=== PATIENT | female | born 1980 | race Caucasian/White ===

== ENCOUNTER → 2016-03-24 | Outpatient (CLI) | payer OTHER ==
[~2016-03-24] MED LIST: /ESOM40CA OR
--- NOTE | 2016-03-25 11:24 | REP ---
Right foot four views: I suspect there is a nondisplaced comminuted interarticular fracture at the base of the fifth digit proximal phalange . No dislocation. There is soft tissue edema dorsally. Mineralization and joint spaces are otherwise unremarkable. No other evidence of fracture or dislocation. Signed by Andrew Kaplan MD 03/24/2016 04:47 P
== END ==
LOC: M ADAMS 16:21
PROVIDERS: ATTEND Physician Assistant Medical
DX: S90.31XA Contusion of right foot, initial encounter (principal); X58.XXXA Exposure to other specified factors, initial encounter; Y92.9 Unspecified place or not applicable

== ENCOUNTER → 2016-11-21 | Outpatient (CLI) | payer OTHER ==
--- NOTE | 2016-11-22 08:36 | REP ---
Clinical: Trauma. Technique: AP, lateral, bilateral oblique views left foot . Findings: The osseous structures and joint spaces are intact and normal. There is no evidence for acute fracture or dislocation. Surrounding soft tissues are unremarkable. No subcutaneous emphysema or radiodense foreign body. Impression: Age appropriate examination . No acute fracture or dislocation. Signed by Gio Keane MD 11/22/2016 08:27 A
== END ==
LOC: M ADAMS 16:12
PROVIDERS: ATTEND Physician Assistant
DX: S90.32XA Contusion of left foot, initial encounter (principal); W18.30XA Fall on same level, unspecified, initial encounter; Y92.009 Unspecified place in unspecified non-institutional (private) residence as the place of occurrence of the external cause

== ENCOUNTER → 2016-12-17 | Outpatient (REF) | payer OTHER ==
[2016-12-19 00:08] LABS: MUMPS VIRUS IgM ANTIBODY <0.80 AU (0.00-0.79)
== END ==
LOC: M SFHCADAM 10:07
PROVIDERS: ATTEND Physician Assistant
DX: Z92.29 Personal history of other drug therapy (principal)

== ENCOUNTER → 2017-10-09 | Outpatient (CLI) | payer OTHER | LOC: M ADAMS 13:05 | DX: R76.11 Nonspecific reaction to tuberculin skin test without active tuberculosis (principal) | CPT/HCPCS: 71046 ==

== ENCOUNTER → 2017-10-10 | Outpatient (REF) | payer OTHER ==
[2017-10-13 00:06] LABS: QUANTIFERON GOLD TB Negative (Negative); TB Test (QFT) Antigen 0.03 IU/mL (.); TB Test (QFT) Mitogen 8.66 IU/mL (.); TB Test (QFT) Nil 0.03 IU/mL (.)
== END ==
LOC: M SFHCADAM 12:10
DX: R76.11 Nonspecific reaction to tuberculin skin test without active tuberculosis (principal)

== ENCOUNTER → 2018-01-18 | Outpatient (CLI) | payer OTHER | LOC: M ADAMS 08:45 | DX: R06.02 Shortness of breath (principal); M25.512 Pain in left shoulder | CPT/HCPCS: 71046 ==

== ENCOUNTER → 2018-02-11 | Outpatient (CLI) | payer OTHER ==
--- NOTE | 2018-02-11 19:28 | REP ---
Clinical: Contusion. Technique: AP and lateral views of the left forearm. Findings: No acute fracture or dislocation. Skeletal structures, joint spaces, and surrounding soft tissues appear normal. Impression: No acute fracture or dislocation. Electronically Signed by Gio Keane MD 02/11/2018 07:19 P
== END ==
LOC: M ADAMS 08:30
PROVIDERS: ATTEND Physician Assistant Medical
DX: S50.12XA Contusion of left forearm, initial encounter (principal); X58.XXXA Exposure to other specified factors, initial encounter; Y92.89 Other specified places as the place of occurrence of the external cause

== ENCOUNTER 2019-04-14 21:17 | Emergency (ER) | payer OTHER ==
[~2019-04-14] VITALS: Ht 157.5 cm; Wt 77.3 kg
[~2019-04-14 21:17] MED LIST changes: -/ESOM40CA OR; +NEXI1CAP3 OR
[2019-04-14] MEDS ORDERED: OMEP-218 (21:41)
[2019-04-14] MEDS ORDERED: VITA50005 (21:41)
[2019-04-14] MEDS ORDERED: TOPI50TA9 (21:41)
[2019-04-14] MEDS ORDERED: AMIT75TA (21:41)
[2019-04-14] MEDS ORDERED: DULO1CAP4 (21:41)
[2019-04-14] MEDS ORDERED: INDO50CA91 PO (22:19)
[2019-04-14] MEDS ORDERED: INDOMETHACIN 25 MG CAP PO ONE (22:30)
[2019-04-14 22:46] VITALS: BP 130/78
--- NOTE | 2019-04-15 08:02 | REP ---
Left wrist series: Four views. History: Injury. Findings: Four views of the left wrist show overall normal mineralization. No fracture or subluxation is seen. There are soft tissue calcifications adjacent to the PA form. These are dystrophic. Impression: No fracture noted. Electronically Signed by Jese Stubbs MD 04/15/2019 07:54 A
== END 2019-04-14 22:47 | disposition home or self-care (01) ==
LOC: M ED 21:17
DX: S63.502A Unspecified sprain of left wrist, initial encounter (principal); W01.0XXA Fall on same level from slipping, tripping and stumbling without subsequent striking against object, initial encounter; Y92.019 Unspecified place in single-family (private) house as the place of occurrence of the external cause; F17.210 Nicotine dependence, cigarettes, uncomplicated; Z79.899 Other long term (current) drug therapy

== ENCOUNTER → 2020-04-25 | Outpatient (REF) | payer OTHER ==
[~2020-04-25] MED LIST changes: +AMIT75TA; +DULO1CAP4; +INDO50CA91 PO; +OMEP-218; +TOPI50TA9; +VITA50005
[2020-04-25 16:30] LABS: HEMATOCRIT 46.4 % (36.0-47.0); MEAN CORPUSCULAR HEMOGLOBIN 30.9 pg (27.0-33.0); MEAN CORPUSCULAR HGB CONC 32.3 g/dl (32.0-36.5); MEAN CORPUSCULAR VOLUME 95.5 fl (80.0-96.0); PLATELET COUNT, AUTOMATED 357 10^3/uL (150-450); RED BLOOD COUNT 4.86 10^6/uL (4.00-5.40)
[2020-04-25 16:45] LABS: ALBUMIN 4.1 GM/DL (3.2-5.2); ALT/SGPT 19 U/L (12-78); BILIRUBIN,TOTAL 0.2 MG/DL (0.2-1.0); BLOOD UREA NITROGEN 13 MG/DL (7-18); CALCIUM LEVEL 9.2 MG/DL (8.5-10.1); CARBON DIOXIDE LEVEL 26 MEQ/L (21-32); CHLORIDE LEVEL 109 MEQ/L (98-107); CREATININE FOR GFR 0.85 MG/DL (0.55-1.30); FREE T4 0.83 NG/DL (0.76-1.46); GLOMERULAR FILTRATION RATE > 60.0 (>58); GLUCOSE, FASTING 79 MG/DL (70-100); POTASSIUM SERUM 4.8 MEQ/L (3.5-5.1); SODIUM LEVEL 140 MEQ/L (136-145); TOTAL PROTEIN 7.3 GM/DL (6.4-8.2)
[2020-04-25 16:49] LABS: TOTAL 25(OH) VITAMIN D 66.3 NG/ML (30.0-100.0); VITAMIN B12 LEVEL 520 PG/ML
[2020-04-25 16:52] LABS: FOLATE 14.7 NG/ML
== END ==
LOC: M SFHCADAM 11:47
PROVIDERS: ATTEND Physician Assistant
DX: E55.9 Vitamin D deficiency, unspecified (principal); G43.009 Migraine without aura, not intractable, without status migrainosus; M79.7 Fibromyalgia; F32.9 Major depressive disorder, single episode, unspecified; E66.9 Obesity, unspecified; G47.33 Obstructive sleep apnea (adult) (pediatric); J45.20 Mild intermittent asthma, uncomplicated; F17.210 Nicotine dependence, cigarettes, uncomplicated

== ENCOUNTER → 2020-05-10 | Outpatient (REF) | payer OTHER | LOC: M SFHCWAGY 10:20 | PROVIDERS: ATTEND Surgery | DX: N61.1 Abscess of the breast and nipple (principal) ==

== ENCOUNTER 2020-08-18 10:44 | Inpatient (IN) | payer OTHER ==
[~2020-08-18] VITALS: Ht 157.5 cm; Wt 81.4 kg
[~2020-08-18 10:44] MED LIST changes: -AMIT75TA; +AMIT75TA PO; +ERGO500029 PO; -OMEP-218; +OMEP-218 PO; -TOPI50TA9; +TOPI50TA9 PO; -VITA50005
[2020-08-18 12:15] LABS: BASO % 0.2 % (0.0-1.0); EOS # 0.3 10^3/uL (0.0-0.5); HEMOGLOBIN 13.7 g/dl (12.0-15.5); LYMPH # 2.8 10^3/uL (1.5-5.0); LYMPH % 21.8 % (24.0-44.0); MEAN CORPUSCULAR HEMOGLOBIN 30.8 pg (27.0-33.0); MEAN CORPUSCULAR HGB CONC 32.6 g/dl (32.0-36.5); MEAN CORPUSCULAR VOLUME 94.4 fl (80.0-96.0); MONO # 0.8 10^3/uL (0.0-0.8); MONO % 6.4 % (2.0-8.0); NEUTROPHILS % 69.3 % (36.0-66.0); PLATELET COUNT, AUTOMATED 271 10^3/uL (150-450); RED BLOOD COUNT 4.45 10^6/uL (4.00-5.40)
[2020-08-18 12:37] LABS: ALBUMIN 3.5 GM/DL (3.2-5.2); ALT/SGPT 16 U/L (12-78); BILIRUBIN,DIRECT < 0.1 MG/DL (0.0-0.2); BILIRUBIN,TOTAL 0.3 MG/DL (0.2-1.0); LIPASE 55 U/L (73-393); TOTAL PROTEIN 6.6 GM/DL (6.4-8.2)
[2020-08-18] MEDS ORDERED: ISOVUE-370 76% 100ML VIAL As Ordered ONE (13:31)
--- NOTE | 2020-08-18 14:16 | REP ---
INDICATION: LLQ pain, r/o diverticulitis. COMPARISON: None. TECHNIQUE: Standard helical technique after the intravenous administration of 100 cc Isovue 370. No oral bowel preparatory contrast was administered prior to the exam FINDINGS: There is cholelithiasis. The gallbladder wall does not abnormally enhance. There is no pericholecystic edema. The liver, spleen, pancreas, adrenal glands, and kidneys are within normal limits. The abdominal aorta and para-aortic regions are within normal limits. There is thickening of the moreno of the descending colon at the descending colon/sigmoid colon junction with surrounding fatty infiltration amidst multiple diverticula. Tiny dots of air density are seen in the adjacent mesenteric adipose. There is a trace amount of free pelvic fluid. The osseous structures are within normal limits. IMPRESSION: 1. Descending colon/sigmoid colon diverticulitis with micro perforation as described above. A phone call was placed to discuss this finding with the patient's ER provider Dr. Church at this time. 2. Cholelithiasis. 3. Other findings as described above. Critical Findings: Sigmoid colon diverticulitis with microperforation The critical information above was relayed directly by me by telephone to KYA LEAHY on 08/18/2020 at 2:11 pm with readback verification. <Electronically signed by Trever Walker > 08/18/20 [id number]
[2020-08-18] MEDS ORDERED: NS 1,000 ML IV ONE ×2 (14:25→15:30)
[2020-08-18] MEDS ORDERED: DULO60CA35 PO (14:29)
[2020-08-18] MEDS ORDERED: PIPERACILLIN/TAZOBACTAM SOD 3.375 GM in D5W MINI-BAG PLUS 50 ML IV ONE (14:30)
[2020-08-18] MEDS ORDERED: ONDANSETRON 4MG/2ML VIAL IV PRN (14:40)
[2020-08-18] MEDS ORDERED: NALOXONE INJ 0.4MG/1ML VIAL (J2310 PER 1MG) IV PRN (14:45)
[2020-08-18] MEDS ORDERED: MORPHINE 4 MG/ML 1ML VIAL/SYRINGE (J2270) IV PRN (14:45)
[2020-08-18] MEDS ORDERED: GLUCAGON INJ 1MG VIAL SC PRN (14:45)
[2020-08-18] MEDS ORDERED: DEXTROSE 50% 50 ML SYRINGE IV PRN (14:45)
[2020-08-18] MEDS ORDERED: PERCOCET 5MG/325MG TAB PO PRN ×2 (14:45)
[2020-08-18] MEDS ORDERED: GLUCOSE 4GM CHEW TABLET PO PRN (14:45)
[2020-08-18] MEDS ORDERED: MORPHINE 4 MG/ML 1ML VIAL/SYRINGE (J2270) IV ONE (15:05)
[2020-08-18 15:50] LABS: RSV AMPLIFICATION NEGATIVE (NEGATIVE)
[2020-08-18] MEDS: KETOROLAC 30 MG/ML 1ML VIAL IV SCH ×2 (16:54→21:01)
[2020-08-18] MEDS: metroNIDAZOLE 500 MG in IV 1 EA IV SCH ×2 (16:54→23:30)
[2020-08-18 17:00] VITALS: BP 128/65
[2020-08-18] MEDS: CIPROFLOXACIN 400 MG in IV 1 EA IV SCH (17:52)
[2020-08-18] MEDS: KCL 10MEQ IN D5/0.45NS 1000ML 1,000 ML IV SCH (17:52)
[2020-08-18 22:00] VITALS: BP 113/74
--- NOTE | 2020-08-18 23:49 | HPE ---
HISTORY AND PHYSICAL DATE OF ADMISSION: 08/18/2020 CHIEF COMPLAINT: Left lower quadrant abdominal pain for the past 2-1/2 days. HISTORY OF PRESENT ILLNESS: A 40-year-old female with a history of asthma, fibromyalgia, migraines, gastroesophageal reflux disease, obstructive sleep apnea, obesity; BMI 32.8, who presents to the Emergency Room with 2-1/2 day history of left lower quadrant pain described as sharp and constant, sometimes radiating to the back, without nausea, vomiting, fever or chills, slightly better when she lays down on her left side with a rolled sheet and presses on it slightly. Patient denies taking any nonsteroidal anti-inflammatories, acetaminophen or any other pain medications at home. She decided to present to the Emergency Room for further evaluation. She otherwise denies any decrease in oral intake, weight gain, weight loss, diarrhea, constipation, bright red blood per rectum, melena, dark tarry stools or other review of systems negative. PAST MEDICAL HISTORY: Migraines, asthma, reflux, fibromyalgia, obstructive sleep apnea; not on CPAP, noncompliant, cholelithiasis. PAST SURGICAL HISTORY: D and C, sinus surgery, left breast cyst biopsy, left finger surgery secondary to traumatic injury of her pinky fifth digit. SOCIAL HISTORY: Smokes cigarettes 1-1/2 packs to 3/4 pack a day since the age of 11. Alcohol use one cooler every week. Patient works at the [employer]. No healthcare proxy. Full code. FAMILY HISTORY: Father in his 70's; unknown medical problems. Mother also in her 70's; diabetes, hypertension, hypercholesterolemia and diverticulitis. REVIEW OF SYSTEMS: A 10-point system negative aside from positive findings on HPI. PHYSICAL EXAMINATION: VITAL SIGNS: Temperature 97.6, pulse 70, respiratory rate 17, blood pressure 128/65, 100% on room air. GENERAL: Patient is awake, alert and oriented to person, place and time. Answering questions appropriately. No respiratory distress. HEENT: No pallor, icterus, jaundice. No jugular venous distention. Moist mucous membranes. No cervical lymphadenopathy. LUNGS: Clear to auscultation. No wheezing, rales or rhonchi. HEART: S1, S2, sinus rhythm. No murmurs, rubs or gallops. ABDOMEN: Soft, obese, tender in the left lower quadrant. No rebound or guarding. Positive bowel sounds x4 quadrants. No hepatosplenomegaly. No CVA tenderness. EXTREMITIES: No cyanosis, clubbing or any pitting edema. LABORATORY DATA: White count 13, hemoglobin 13, hematocrit 42, platelets 271,000. Lactic acid 0.6. Total bilirubin 0.3, direct bilirubin less than 0.1. AST 9, ALT 16, alkaline phosphatase 74, total protein 6.6, albumin 3.5, lipase 55. Beta-HCG less than 5. Sodium 139, potassium 3.9, chloride 106, bicarb 20, BUN 8, creatinine 0.6. Ionized calcium 5.1. Glucose 90. Urinalysis negative. MICROBIOLOGY: Two sets of blood cultures pending. CT abdomen and pelvis revealed sigmoid diverticulitis with microperforation as described, cholelithiasis. ASSESSMENT: A 40-year-old female with 2-1/2 day history of left lower quadrant abdominal pain, found to have acute descending colon and sigmoid colon diverticulitis with microperforation, admitted as an inpatient for two midnights for the following acute issues: 1. Acute descending colon and sigmoid colon diverticulitis with microperforation. 2. History of migraines. 3. History of asthma. 4. Fibromyalgia. 5. Obstructive sleep apnea. 6. Gastroesophageal reflux disease. 7. Active tobacco abuse. 8. Social alcohol use. 9. Medical noncompliance with her CPAP. PLAN: Patient will be admitted as an inpatient for two midnights. Supportive care with I.V. fluids, n.p.o. status, I.V. Cipro and I.V. Flagyl. She received one dose of I.V. Zosyn in the Emergency Room, Toradol 30 mg I.V. every 6 hours for anti-inflammatory effect, and hypoglycemic protocol with D5 half normal saline at 100 an hour after 2 liters I.V. saline bolus. For pain control, Percocet 1-2 tablets as needed, morphine for breakthrough pain, Narcan for any suspicion of respiratory acidosis. Due to risk of respiratory acidosis with hypercarbia and hypercapnic respiratory failure in light of history of obstructive sleep apnea and noncompliance, would put on YE protocol. Continue his pulse ox q.h.s. and Narcan as needed to reverse any effect of Percocet or morphine. DVT prophylaxis with compression stockings. Will advance to clear or a full liquid diet in the morning if patient's pain is improved. No signs of fevers or sepsis. MTDD
[2020-08-19] MEDS: KCL 10MEQ IN D5/0.45NS 1000ML 1,000 ML IV SCH ×2 (04:56→11:48)
[2020-08-19] MEDS: KETOROLAC 30 MG/ML 1ML VIAL IV SCH ×2 (04:57→09:02)
[2020-08-19] MEDS: CIPROFLOXACIN 400 MG in IV 1 EA IV SCH (05:00)
[2020-08-19 06:00] VITALS: BP 121/70
[2020-08-19 06:26] LABS: BASO % 0.4 % (0.0-1.0); EOS # 0.3 10^3/uL (0.0-0.5); EOS % 3.2 % (0.0-3.0); HEMATOCRIT 34.2 % (36.0-47.0); LYMPH # 2.2 10^3/uL (1.5-5.0); MEAN CORPUSCULAR HEMOGLOBIN 31.1 pg (27.0-33.0); MEAN CORPUSCULAR HGB CONC 32.7 g/dl (32.0-36.5); MONO # 0.6 10^3/uL (0.0-0.8); MONO % 7.6 % (2.0-8.0); NEUTROPHILS % 61.4 % (36.0-66.0); PLATELET COUNT, AUTOMATED 216 10^3/uL (150-450); WHITE BLOOD COUNT 8.2 10^3/uL (4.0-10.0)
[2020-08-19 06:28] LABS: HEMOGLOBIN 11.2 g/dl (12.0-15.5)
[2020-08-19 06:48] LABS: BLOOD UREA NITROGEN 7 MG/DL (7-18); CALCIUM LEVEL 7.4 MG/DL (8.5-10.1); CARBON DIOXIDE LEVEL 23 MEQ/L (21-32); CHLORIDE LEVEL 111 MEQ/L (98-107); CREATININE FOR GFR 0.66 MG/DL (0.55-1.30); GLOMERULAR FILTRATION RATE > 60.0 (>58); GLUCOSE, FASTING 108 MG/DL (70-100); POTASSIUM SERUM 3.5 MEQ/L (3.5-5.1); SODIUM LEVEL 138 MEQ/L (136-145)
[2020-08-19] MEDS ORDERED: BACI1CAP PO ×2 (07:20→13:16)
[2020-08-19] MEDS ORDERED: FLAG500T PO ×2 (07:20→13:16)
[2020-08-19] MEDS ORDERED: CIPR-249 PO ×2 (07:20→13:16)
--- NOTE | 2020-08-19 07:42 | IPN ---
PROGRESS NOTE DATE: 08/19/2020 SUBJECTIVE: The patient is seen and examined at the bedside. Chart has been reviewed. She denies nausea, vomiting, fever, or chills overnight. Only very slight discomfort at the left lower quadrant 1/10 on a pain scale. No diarrhea or constipation. No complaints of chills. OBJECTIVE: VITAL SIGNS: Temperature 97.9, pulse 72, respiratory rate 20, blood pressure 121/70, 96% on room air. GENERAL: The patient is awake, alert, and oriented person, place, and time. Answering questions comfortably in no distress. HEENT: Dry mucous membranes. LUNGS: Clear to auscultation. No wheezing, rales, or rhonchi. HEART: S1, S2. Sinus rhythm. ABDOMEN: Soft. Tender in the left lower quadrant. No rebound or guarding. Positive bowel sounds. EXTREMITIES: No cyanosis, clubbing, or pitting edema. DIAGNOSTIC STUDIES: Laboratory data, microbiology, and imaging studies have been reviewed. ASSESSMENT: This is a 40-year-old female with a history of gastroesophageal reflux disease (GERD), migraines, active smoker, fibromyalgia, obstructive sleep apnea noncompliant with CPAP, cholelithiasis admitted on 08/18 due to descending colon sigmoid diverticulitis with left lower quadrant abdominal pain for the past two and a half days. Active issues: 1. Acute descending and sigmoid colon diverticulitis with microperforation. The patient received one dose of IV Zosyn yesterday on 08/18/2020, in the emergency room and currently n.p.o. status with IV fluids overnight, hypoglycemic protocol, IV Cipro and Flagyl currently day #2. The patient was kept on Toradol 30 mg IV q. 6 hourly for anti-inflammatory affect with IV fluids to prevent acute kidney injury and renal failure and had done well overnight. Percocet as needed one to two tablets and morphine for breakthrough pain as needed. Narcan for possible respiratory acidosis due to risk of hypercarbic and hypercapnic respiratory failure from obstructive sleep apnea for which he is noncompliant. The patient will be advanced on a full liquid diet today as tolerated to a solid diet. If she remains stable without abdominal pain, fever, chills, or signs of worsening abdominal distention, the patient may either be discharged home later today or in the morning for further observation. She is to complete a total of seven days of antibiotics five more days as outpatient if she remains in the hospital today and discharged in the morning. 2. History of migraines. No acute symptoms. 3. History of asthma, clear lungs currently at the bedside. 4. Fibromyalgia chronic. No acute pain issues. 5. Obstructive sleep apnea, stable. Keep on continuous pulse ox at night due to opiate use for pain control. 6. Gastroesophageal reflux disease on IV Protonix. 7. Active tobacco use. Tobacco cessation counseling has been provided, as well as nicotine patch. 8. Medical noncompliance with her CPAP for her obstructive sleep apnea, chronic. DISPOSITION: May discharge later today if tolerates her diet without pain versus tomorrow if she has worsening abdominal distention and pain with food. MTDD
[2020-08-19] MEDS ORDERED: PANTOPRAZOLE 40MG VIAL (C9113 PER 1) IV SCH (09:00)
[2020-08-19] MEDS: metroNIDAZOLE 500 MG in IV 1 EA IV SCH (09:02)
[2020-08-19] MEDS ORDERED: GI COCKTAIL 50ML BTL(HYOSCYAMINE/MAALOX/LIDOCAINE VISCOUS)(1:3:1) PO PRN (12:50)
[2020-08-19] MEDS ORDERED: PANTOPRAZOLE 40MG TAB (PROTONIX) PO ONE (12:50)
[2020-08-19] MEDS ORDERED: PERC5TAB12 PO ×2 (12:51→13:16)
[2020-08-19] MEDS ORDERED: DIFL150T PO (13:05)
[2020-08-19] MEDS ORDERED: 3 DA2CRE PV (13:05)
[2020-08-19] MEDS ORDERED: SUCRALFATE 1 GM TAB PO ONE (14:00)
[2020-08-19] MEDS ORDERED: GI COCKTAIL 50ML BTL(HYOSCYAMINE/MAALOX/LIDOCAINE VISCOUS)(1:3:1) PO ONE (14:00)
--- NOTE | 2020-08-20 14:32 | DSES ---
DISCHARGE SUMMARY DATE OF ADMISSION: 08/18/2020 DATE OF DISCHARGE: 08/19/2020 PRIMARY DISCHARGE DIAGNOSES: 1. Acute descending colon. 2. Sigmoid colon diverticulitis with microperforation. 3. History of migraines. 4. History of asthma. 5. Chronic fibromyalgia. 6. Obstructive sleep apnea, not on continuous positive airway pressure (CPAP), noncompliant. 7. Gastroesophageal reflux disease. 8. Active tobacco abuse. 9. Medical noncompliance with continuous positive airway pressure (CPAP) for obstructive sleep apnea. DISCHARGE MEDICATIONS: - ciprofloxacin 500 mg by mouth twice a day - Flagyl 500 mg by mouth every 8 hours - Bacid one tablet in the morning and at bedtime - clotrimazole topically as needed - fluconazole 150 mg once as needed for yeast infection - Percocet one tablet three times a day as needed for pain - amitriptyline 75 mg daily at bedtime - duloxetine 60 mg daily - vitamin D 50,000 units weekly - omeprazole 20 mg daily - Topamax 50 mg twice a day DISCHARGE INSTRUCTIONS: Primary care physician appointment within five days of discharge. HOSPITAL COURSE: This is a 50-year-old female who presented to the emergency room with 2 to 2-1/2 day history of left lower quadrant abdominal pain described as sharp and constant, radiating to the back at times without nausea, vomiting, fever, chills, dysuria, urgency or frequency, worse when she lays down on the right side, better when she lays down on the left with a rolled sheet and when she presses on it slightly. Patient denies any nonsteroidal antiinflammatory (NSAID) use or upper gastrointestinal (GI) bleed in the past, presents to the emergency room and found to have descending colon, sigmoid colon diverticulitis with microperforation. She was given one dose of intravenous (IV) Zosyn in the emergency room (ER). She was afebrile and vital signs were stable with blood pressure 128/65, kept nothing by mouth (NPO), IV fluid, antiemetics, IV Toradol around the clock and Percocet 1-2 tablets as needed with morphine for breakthrough pain. Patient did well overnight and was advanced on a liquid diet for breakfast and a solid regular diet for lunch, which she tolerated well without any abdominal discomfort. Blood cultures were negative. Blood work improved, with white count of 13 on admission, discharge of 8.2. She had no other acute issues and was discharged in stable condition. PHYSICAL EXAMINATION ON DISCHARGE: VITAL SIGNS: Temperature 97.9, pulse 72, respiratory rate 20, blood pressure 121/70, 96% on room air. GENERAL: No distress. LUNGS: Clear to auscultation. HEART: S1, S2. Sinus rhythm. ABDOMEN: Soft. Slightly tender left lower quadrant on deep palpation. Positive bowel sounds all four quadrants. No rebound or guarding. EXTREMITIES: No cyanosis, clubbing or pitting edema. LABORATORY DATA: Laboratory data, microbiology, imaging studies: Please see the chart. TIME SPENT ON DISCHARGE: 30 minutes. MTDD
== END 2020-08-19 14:00 | disposition home or self-care (01) | DRG 244 ==
LOC: M ED 10:44 → M ED INP 14:39 → ENRESERV 16:25 → M MS5PR 16:50
PROVIDERS: ADMIT General Practice; ATTEND General Practice
DX: K57.20 Diverticulitis of large intestine with perforation and abscess without bleeding (principal); E66.9 Obesity, unspecified; J45.909 Unspecified asthma, uncomplicated; M79.7 Fibromyalgia; G43.909 Migraine, unspecified, not intractable, without status migrainosus; K21.9 Gastro-esophageal reflux disease without esophagitis; G47.33 Obstructive sleep apnea (adult) (pediatric); Z68.32 Body mass index [BMI] 32.0-32.9, adult; Z91.19 Patient's noncompliance with other medical treatment and regimen; F17.210 Nicotine dependence, cigarettes, uncomplicated; Z79.899 Other long term (current) drug therapy; Z88.2 Allergy status to sulfonamides

== ENCOUNTER → 2020-08-25 | Outpatient (CLI) | payer OTHER ==
[~2020-08-25] MED LIST changes: +3 DA2CRE PV; +BACI1CAP PO; +CIPR-249 PO; +DIFL150T PO; +DULO60CA35 PO; +FLAG500T PO; +PERC5TAB12 PO
--- NOTE | 2020-08-25 10:27 | REP ---
INDICATION: N61.1 LT BREAST ABSCESS. Abscess removed from the left breast April of 2020. Small defect in the overlying skin but no drainage or other breast symptoms. COMPARISON: Mammography dated August 01, 2009. TECHNIQUE: Routine views of each breast are obtained. 3D tomography is performed. Magnified focal spot-compression CC and MLO spot views of the subareolar regions are acquired bilaterally. Targeted bilateral subareolar sonography is performed. FINDINGS: The breast parenchyma is heterogeneously dense in a pattern which may inhibit the sensitivity mammography. There are widely dispersed microcalcifications throughout the dense breast parenchyma suggesting sclerosing adenosis. This is bilateral and symmetric. Also noted is bilateral dilated duct pattern in the subareolar region of each breast. This is slightly more prominent on the left than the right but is essentially symmetric. No mass or adenopathy is appreciated. No evidence of architectural distortion is seen. 3D tomography shows no additional findings. The Volpara volumetric breast density pattern is C. Targeted bilateral subareolar sonography: At 10 o'clock in the right breast there is a 1.4 x 1.5 by 0.8 cm simple cyst. Heterogeneous fibroglandular background echotexture is seen. Bilateral retroareolar ductal dilation is observed, right more prominent than left by ultrasound. Ductal dilation up to 1 cm is seen in the right retroareolar region and up to 0.5 cm in the left. There is evidence of inspissated mobile proteinaceous fluid within the dilated ducts. No mass lesion is observed.. IMPRESSION: BIRADS/ACR category 2 benign bilateral mammographic and sonographic findings. Dilated retroareolar ducts.. This patient's Tyrer-Cuzick lifetime breast cancer risk assessment score is 10.1%. This mammogram was interpreted with the aid of an FDA-approved computer-aided detection system. The patient states she had a clinical breast exam in April of 2020. The patient letter being requested is M2 dense. RECOMMENDATION: Repeat screening mammography recommended 1 year (for women over 40). <Electronically signed by Silver Stubbs > 08/25/20 [id number]
== END ==
LOC: M WHC 07:54
PROVIDERS: ATTEND Surgery
DX: N61.1 Abscess of the breast and nipple (principal)
CPT/HCPCS: 76642; 77066; G0279

== ENCOUNTER 2021-09-19 15:32 | Emergency (ER) | payer OTHER ==
[~2021-09-19] VITALS: Ht 157.5 cm; Wt 80.5 kg
[2021-09-19 15:32] VITALS: BP 139/82
[~2021-09-19 15:32] MED LIST changes: +OMEP-173 PO; -OMEP-218 PO
[2021-09-19] MEDS ORDERED: SUMA25TA3 (15:41)
[2021-09-19 17:10] LABS: BASO % 0.4 % (0.0-1.0); EOS # 0.3 10^3/uL (0.0-0.5); EOS % 2.9 % (0.0-3.0); HEMATOCRIT 40.3 % (36.0-47.0); HEMOGLOBIN 13.2 g/dl (12.0-15.5); LYMPH # 3.6 10^3/uL (1.5-5.0); LYMPH % 35.6 % (24.0-44.0); MEAN CORPUSCULAR HEMOGLOBIN 30.3 pg (27.0-33.0); MEAN CORPUSCULAR HGB CONC 32.8 g/dl (32.0-36.5); MEAN CORPUSCULAR VOLUME 92.4 fl (80.0-96.0); MONO # 0.5 10^3/uL (0.0-0.8); MONO % 4.9 % (2.0-8.0); NEUTROPHILS # 5.7 10^3/uL (1.5-8.5); NEUTROPHILS % 55.8 % (36.0-66.0); PLATELET COUNT, AUTOMATED 316 10^3/uL (150-450); RED BLOOD COUNT 4.36 10^6/uL (4.00-5.40); WHITE BLOOD COUNT 10.2 10^3/uL (4.0-10.0)
[2021-09-19 17:36] LABS: ALT/SGPT 16 U/L (12-78); BILIRUBIN,DIRECT < 0.1 MG/DL (0.0-0.2); BILIRUBIN,TOTAL 0.3 MG/DL (0.2-1.0); BLOOD UREA NITROGEN 7 MG/DL (7-18); CALCIUM LEVEL 9.2 MG/DL (8.5-10.1); CARBON DIOXIDE LEVEL 22 MEQ/L (21-32); CHLORIDE LEVEL 113 MEQ/L (98-107); CREATININE FOR GFR 0.76 MG/DL (0.55-1.30); GLOMERULAR FILTRATION RATE > 60.0 (>58); GLUCOSE, FASTING 83 MG/DL (70-100); LIPASE 79 U/L (73-393); POTASSIUM SERUM 4.3 MEQ/L (3.5-5.1); SODIUM LEVEL 141 MEQ/L (136-145); TOTAL PROTEIN 6.9 GM/DL (6.4-8.2)
[2021-09-19] MEDS ORDERED: NS 1,000 ML IV ONE (17:45)
[2021-09-19] MEDS ORDERED: KETOROLAC 30 MG/ML 1ML VIAL IV ONE (17:45)
[2021-09-19] MEDS ORDERED: ONDANSETRON 4MG 2ML VIAL IV ONE (17:45)
[2021-09-19] MEDS ORDERED: ISOVUE-370 76% 100ML VIAL As Ordered ONE (17:58)
[2021-09-19] MEDS ORDERED: CYCL-707 PO (19:32)
[2021-09-19] MEDS ORDERED: NAPR-837 PO (19:32)
== END 2021-09-19 19:47 | disposition home or self-care (01) ==
LOC: M ED 15:32
DX: R10.9 Unspecified abdominal pain (principal); R11.0 Nausea; J45.909 Unspecified asthma, uncomplicated; F32.A Depression, unspecified; G43.909 Migraine, unspecified, not intractable, without status migrainosus; G47.33 Obstructive sleep apnea (adult) (pediatric); M79.7 Fibromyalgia; Z87.19 Personal history of other diseases of the digestive system; Z88.2 Allergy status to sulfonamides; Z79.899 Other long term (current) drug therapy; F17.210 Nicotine dependence, cigarettes, uncomplicated
CPT/HCPCS: 74177; 80048; 80076; 81001; 83690; 85025; 96361; 96374; 96375; 99283; J1885; J2405; Q9967

== ENCOUNTER → 2021-10-25 | Outpatient (CLI) | payer OTHER ==
[~2021-10-25] MED LIST changes: +CYCL-707 PO; +IBUP-1857 PO; +NAPR-837 PO; +SUMA25TA3 PO; +[UNRECOGNIZED DRUG - OTHER] PO; +cbd gummies PO
== END ==
LOC: M LABSMTC 09:55
PROVIDERS: ATTEND Anesthesiology
DX: Z01.818 Encounter for other preprocedural examination (principal); Z11.52 Encounter for screening for COVID-19

== ENCOUNTER 2021-10-30 06:07 | Day surgery (SDC) | payer OTHER ==
[~2021-10-30] VITALS: Ht 157.5 cm; Wt 81.6 kg
[~2021-10-30 06:07] MED LIST changes: +ceFAZolin SOD 2 GM in IV 1 EA IV ONE
[2021-10-30] MEDS ORDERED: BUPIVACAINE/EPIN 0.25% 30 ML VIAL As Ordered ONE (07:09)
[2021-10-30] MEDS ORDERED: ONDANSETRON 4MG 2ML VIAL As Ordered ONE (08:00)
[2021-10-30] MEDS ORDERED: MIDAZOLAM INJ 2MG/2ML VIAL (J2250 PER 1MG) As Ordered ONE (08:00)
[2021-10-30] MEDS ORDERED: fentaNYL 100 MCG/2 ML INJECTION As Ordered ONE (08:00)
[2021-10-30] MEDS ORDERED: dexameTHASONE 4 MG/ML 1ML VIAL (J1100 PER 1MG) As Ordered ONE (08:00)
[2021-10-30] MEDS ORDERED: ROCURONIUM BROMIDE 50 MG/5 ML VIAL As Ordered ONE (08:00)
[2021-10-30] MEDS ORDERED: ACETAMINOPHEN 1000MG 100ML IV BTL (OFIRMEV) (J0131 PER 10MG) As Ordered ONE (08:00)
[2021-10-30] MEDS ORDERED: SUGAMMADEX SODIUM 500 MG/5 ML VIAL (BRIDION) As Ordered ONE (08:00)
[2021-10-30] MEDS ORDERED: LIDOCAINE 2% 100MG/5ML SDV (FOR ANES.) As Ordered ONE (08:00)
[2021-10-30] MEDS ORDERED: propofoL 200 MG/20 ML VIAL As Ordered ONE (08:00)
[2021-10-30] MEDS ORDERED: PHENYLephrine 500MCG 5ML (100MCG/ML) SYRINGE As Ordered ONE (08:01)
[2021-10-30] MEDS ORDERED: KETOROLAC 60MG 2ML VIAL As Ordered ONE (08:11)
[2021-10-30] MEDS ORDERED: MORPHINE 2 MG/ML 1ML VIAL IV PRN (08:15)
[2021-10-30] MEDS ORDERED: ONDANSETRON 4MG 2ML VIAL IV PRN (08:15)
[2021-10-30] MEDS ORDERED: fentaNYL 100 MCG/2 ML INJECTION IV PRN (08:15)
[2021-10-30] MEDS ORDERED: LR 1,000 ML IV SCH (08:15)
[2021-10-30] MEDS ORDERED: NS 1,000 ML IV SCH (08:40)
[2021-10-30] MEDS ORDERED: NORCO, ANEXSIA 5/325MG TABLET (HYDROcodone/ACETAMINOPHEN) PO PRN ×2 (08:40)
[2021-10-30] MEDS: oxyCODONE 5MG TAB PO PRN ×2 (08:43→09:12)
[2021-10-30 09:49] VITALS: BP 113/66
== END 2021-10-30 09:52 | disposition home or self-care (01) ==
LOC: M SDC 06:07
PROVIDERS: ATTEND Surgery
DX: K80.10 Calculus of gallbladder with chronic cholecystitis without obstruction (principal); K57.92 Diverticulitis of intestine, part unspecified, without perforation or abscess without bleeding; K21.9 Gastro-esophageal reflux disease without esophagitis; G47.33 Obstructive sleep apnea (adult) (pediatric); M79.7 Fibromyalgia; F32.A Depression, unspecified; J45.909 Unspecified asthma, uncomplicated; Z88.2 Allergy status to sulfonamides; Z79.899 Other long term (current) drug therapy; F17.210 Nicotine dependence, cigarettes, uncomplicated
CPT/HCPCS: 47562; 88304; J0131; J0690; J1100; J1885; J2250; J2270; J2370; J2405; J3010

== ENCOUNTER → 2022-10-18 | Outpatient (CLI) | payer OTHER ==
[~2022-10-18] MED LIST changes: +TOPI-254 PO; -TOPI50TA9 PO; -ceFAZolin SOD 2 GM in IV 1 EA IV ONE
== END ==
LOC: M ADAMS 13:13
PROVIDERS: ATTEND Physician Assistant
DX: R07.9 Chest pain, unspecified (principal)

== ENCOUNTER → 2022-10-18 | Outpatient (REF) | payer OTHER ==
[2022-10-18 16:24] LABS: BASO % 0.5 % (0.0-1.0); EOS # 0.3 10^3/uL (0.0-0.5); EOS % 2.9 % (0.0-3.0); HEMATOCRIT 38.9 % (36.0-47.0); HEMOGLOBIN 12.9 g/dl (12.0-15.5); LYMPH # 3.3 10^3/uL (1.5-5.0); LYMPH % 37.8 % (24.0-44.0); MEAN CORPUSCULAR HEMOGLOBIN 31.1 pg (27.0-33.0); MEAN CORPUSCULAR HGB CONC 33.2 g/dl (32.0-36.5); MEAN CORPUSCULAR VOLUME 93.7 fl (80.0-96.0); MONO # 0.6 10^3/uL (0.0-0.8); MONO % 6.2 % (2.0-8.0); NEUTROPHILS # 4.6 10^3/uL (1.5-8.5); NEUTROPHILS % 52.4 % (36.0-66.0); PLATELET COUNT, AUTOMATED 281 10^3/uL (150-450); RED BLOOD COUNT 4.15 10^6/uL (4.00-5.40); WHITE BLOOD COUNT 8.8 10^3/uL (4.0-10.0)
[2022-10-18 16:46] LABS: LIPASE 29 U/L (12-53)
[2022-10-18 16:47] LABS: AMYLASE 49 U/L (30-118)
[2022-10-18 16:48] LABS: ALBUMIN 3.8 G/DL (3.2-5.2); ALKALINE PHOSPHATASE 91 U/L (46-116); ALT/SGPT 23 U/L (7.0-40); AST/SGOT 19 U/L (<34); BILIRUBIN,TOTAL 0.3 MG/DL (0.3-1.2); BLOOD UREA NITROGEN 12 MG/DL (9-23); CALCIUM LEVEL 9.5 MG/DL (8.5-10.1); CARBON DIOXIDE LEVEL 24 MMOL/L (20-31); CHLORIDE LEVEL 108 MMOL/L (98-107); CHOLESTEROL LEVEL 198 MG/DL (<200); CHOLESTEROL RISK RATIO 5.45 (<5); CREATININE FOR GFR 0.79 MG/DL (0.55-1.30); GLOMERULAR FILTRATION RATE > 60.0 (>58); GLUCOSE, FASTING 126 MG/DL (60-100); HDL CHOLESTEROL 36.3 MG/DL (>40); LDL CHOLESTEROL 136.9 MG/DL (<100); NON-HDL-C 161.7 MG/DL; SODIUM LEVEL 141 MMOL/L (136-145); TOTAL PROTEIN 6.6 G/DL (5.7-8.2); TRIGLYCERIDES LEVEL 124 MG/DL (<150)
[2022-10-18 16:50] LABS: FREE T4 1.14 NG/DL (0.89-1.76)
[2022-10-18 16:57] LABS: HEMOGLOBIN A1c 4.9 % (4.0-6.0)
== END ==
LOC: M SFHCADAM 12:13
PROVIDERS: ATTEND Physician Assistant
DX: R07.9 Chest pain, unspecified (principal); F17.210 Nicotine dependence, cigarettes, uncomplicated; Z13.220 Encounter for screening for lipoid disorders; Z13.1 Encounter for screening for diabetes mellitus

== ENCOUNTER 2023-05-12 11:13 | Emergency (ER) | payer OTHER ==
[~2023-05-12] VITALS: Ht 157.5 cm; Wt 87.4 kg
[~2023-05-12 11:13] MED LIST changes: +TOPI-21 PO; -TOPI-254 PO
[2023-05-12] MEDS: LIDOCAINE 5% (LIDODERM) PATCH TD ONE (14:10)
[2023-05-12] MEDS: KETOROLAC 60MG 2ML VIAL IM ONE (14:11)
[2023-05-12] MEDS ORDERED: METH-1165 PO (14:18)
[2023-05-12 14:36] VITALS: BP 141/87; TEMP 98.4; O2SAT 100
== END 2023-05-12 14:37 | disposition home or self-care (01) ==
LOC: M ED 11:13
DX: M25.511 Pain in right shoulder (principal); X50.0XXA Overexertion from strenuous movement or load, initial encounter; K21.9 Gastro-esophageal reflux disease without esophagitis; R51.9 Headache, unspecified; J45.909 Unspecified asthma, uncomplicated; F17.200 Nicotine dependence, unspecified, uncomplicated; Z88.2 Allergy status to sulfonamides; Y92.9 Unspecified place or not applicable; Y93.89 Activity, other specified; Y99.0 Civilian activity done for income or pay; Z79.83 Long term (current) use of bisphosphonates; Z79.82 Long term (current) use of aspirin; Z79.891 Long term (current) use of opiate analgesic; Z79.899 Other long term (current) drug therapy
CPT/HCPCS: 73030; 96372; 99283; J1885

== ENCOUNTER → 2023-07-02 | Outpatient (CLI) | payer OTHER ==
[~2023-07-02] MED LIST changes: +METH-1165 PO
== END ==
LOC: M SOG 15:18
PROVIDERS: ATTEND Physician Assistant
DX: M25.511 Pain in right shoulder (principal)

== ENCOUNTER → 2023-07-18 | Outpatient (CLI) | payer OTHER | LOC: M RAD 07:22 | PROVIDERS: ATTEND Physician Assistant | DX: M25.511 Pain in right shoulder (principal); S46.011A Strain of muscle(s) and tendon(s) of the rotator cuff of right shoulder, initial encounter; X58.XXXA Exposure to other specified factors, initial encounter; Y92.9 Unspecified place or not applicable ==

== ENCOUNTER → 2023-12-17 | Outpatient (CLI) | payer OTHER ==
[~2023-12-17] MED LIST changes: +ISOVUE-300 61% 100ML VIAL As Ordered ONE; +methylPREDNISolone SUSP 40MG/ML 1ML VIAL (DEPO MEDROL) As Ordered ONE
== END ==
LOC: M RAD 10:07
PROVIDERS: ATTEND Orthopaedic Surgery
DX: S46.011A Strain of muscle(s) and tendon(s) of the rotator cuff of right shoulder, initial encounter (principal); X58.XXXA Exposure to other specified factors, initial encounter; Y92.9 Unspecified place or not applicable
CPT/HCPCS: 20610; 77002; J0665; J1010; Q9967

== ENCOUNTER → 2024-04-26 | Outpatient (CLI) | payer OTHER ==
[~2024-04-26] MED LIST changes: -ISOVUE-300 61% 100ML VIAL As Ordered ONE; -methylPREDNISolone SUSP 40MG/ML 1ML VIAL (DEPO MEDROL) As Ordered ONE
== END ==
LOC: M ADAMS 14:20
PROVIDERS: ATTEND Family Medicine
DX: R09.89 Other specified symptoms and signs involving the circulatory and respiratory systems (principal)

== ENCOUNTER 2024-07-01 14:32 | Day surgery (SDC) | payer OTHER ==
[~2024-07-01] VITALS: Ht 157.5 cm; Wt 99.8 kg
[~2024-07-01 14:32] MED LIST changes: +ACET-907 PO; +CELE1CAP4 PO; +COLA100C5 PO; +MELO15TA28 PO; +ONDA-282 PO; +OXYC-517 PO; +PROA1AER2 INH
[2024-07-01] MEDS ORDERED: fentaNYL 100 MCG/2 ML INJECTION As Ordered ONE (14:53)
[2024-07-01] MEDS ORDERED: propofoL 200 MG/20 ML VIAL As Ordered ONE (14:54)
[2024-07-01] MEDS ORDERED: MIDAZOLAM INJ 2MG/2ML VIAL As Ordered ONE (14:54)
[2024-07-01] MEDS ORDERED: LIDOCAINE 2% 100MG/5ML SDV (FOR ANES.) As Ordered ONE (14:55)
[2024-07-01] MEDS ORDERED: ROCURONIUM BROMIDE 50MG/5ML VIAL As Ordered ONE (14:55)
[2024-07-01] MEDS ORDERED: ONDANSETRON 4MG 2ML VIAL As Ordered ONE (14:55)
[2024-07-01] MEDS ORDERED: SUGAMMADEX SODIUM 500 MG/5 ML VIAL As Ordered ONE (14:55)
[2024-07-01] MEDS ORDERED: LACRILUBE (AKWA TEARS) OPHTH OINT 3.5GM As Ordered ONE (15:01)
[2024-07-01] MEDS ORDERED: ACETAMINOPHEN 1000MG/100ML IV BAG As Ordered ONE (15:07)
[2024-07-01] MEDS ORDERED: dexAMETHasone 10MG/1ML VIAL PRES.FREE PN ONE (15:35)
[2024-07-01] MEDS: fentaNYL 100 MCG/2 ML INJECTION IV PRN (16:07)
[2024-07-01] MEDS: MIDAZOLAM INJ 2MG/2ML VIAL IV PRN (16:07)
[2024-07-01] MEDS: LIDOCAINE 1% SDV 5ML VIAL PN ONE (16:12)
[2024-07-01] MEDS: EPINEPHrine INJ 1 MG/ML 1ML AMP PN ONE (16:12)
[2024-07-01] MEDS: ROPIvacaine 0.5% 30ML VIAL PN ONE (16:12)
[2024-07-01] MEDS: TRANEXAMIC ACID 100 MG/ML 10ML VIAL As Ordered ONE (16:49)
[2024-07-01] MEDS ORDERED: GLYCOPYRROLATE INJ 0.2 MG/ML 2 ML VIAL As Ordered ONE (16:56)
[2024-07-01] MEDS: ceFAZolin SODIUM 2 GM VIAL As Ordered ONE (17:03)
[2024-07-01] MEDS ORDERED: ePHEDrine SULFATE 25 MG/5 ML(5MG/ML) SYRINGE As Ordered ONE (17:06)
[2024-07-01] MEDS ORDERED: PHENYLephrine 500MCG 5ML (100MCG/ML) SYRINGE As Ordered ONE (17:06)
[2024-07-01] MEDS ORDERED: KETOROLAC 30 MG/ML 1ML VIAL As Ordered ONE (17:15)
[2024-07-01] MEDS: EPINEPHrine 1MG/ML INJ 30ML MD-VIAL As Ordered ONE (17:28)
[2024-07-01] MEDS: VANCOMYCIN 1000MG/20ML VIAL As Ordered ONE (17:28)
[2024-07-01] MEDS ORDERED: oxyCODONE 5MG TAB PO PRN (19:50)
[2024-07-01] MEDS ORDERED: fentaNYL 100 MCG/2 ML INJECTION IV PRN (19:50)
[2024-07-01] MEDS ORDERED: ONDANSETRON 4MG 2ML VIAL IV PRN (19:50)
[2024-07-01 20:35] VITALS: BP 123/60; TEMP 97.5; O2SAT 94
[2024-07-07] MEDS ORDERED: METH-1164 PO (13:16)
== END 2024-07-01 21:02 | disposition home or self-care (01) ==
LOC: M SDC 14:32
PROVIDERS: ATTEND Orthopaedic Surgery
DX: M19.011 Primary osteoarthritis, right shoulder (principal); K57.92 Diverticulitis of intestine, part unspecified, without perforation or abscess without bleeding; K58.8 Other irritable bowel syndrome; K21.9 Gastro-esophageal reflux disease without esophagitis; M79.7 Fibromyalgia; F32.A Depression, unspecified; G47.30 Sleep apnea, unspecified; J45.909 Unspecified asthma, uncomplicated; Z79.899 Other long term (current) drug therapy; F17.210 Nicotine dependence, cigarettes, uncomplicated; Z88.2 Allergy status to sulfonamides
CPT/HCPCS: 23120; 29827; 29828; 64415; 73020; C1713; J0131; J0171; J0690; J1100; J1596; J1885; J2250; J2371; J2405; J2795; J3010; J3370